=== PATIENT | female | born 1985 | race African-American/Black ===

== ENCOUNTER 2017-10-29 10:30 | Emergency (ER) | payer MEDICAID, OTHER ==
[~2017-10-29] VITALS: Ht 165.1 cm; Wt 79.4 kg
--- NOTE | 2017-10-29 11:22 | NUR ---
Pt.was seen by ,family at bedside.
[2017-10-29 11:37] VITALS: BP 128/68
== END 2017-10-29 11:43 | disposition home or self-care (01) ==
LOC: ER 10:30
DX: L03.113 Cellulitis of right upper limb (principal); L02.413 Cutaneous abscess of right upper limb
CPT/HCPCS: A4663